=== PATIENT | male | born 1950 | race Caucasian/White ===

== ENCOUNTER → 2016-05-18 | Outpatient (CLI) | payer MEDICARE, OTHER ==
[~2016-05-18] VITALS: Ht 180.3 cm; Wt 117.9 kg
[~2016-05-18] MED LIST: /ATOR40TA; /WARF5TA; ACET65TA; ASPI1TAB PO; ASPI325T; ASPI81TA83; ATEN50TA2; ATEN50TA2 PO; ATOR1TAB18 PO; BABY81CH; COUM1TAB17 PO; GLIM2TA PO; ISOS30BRAN; JANU100T PO; JANUVIA; LIDOCAINE 2% INJ 100 MG/5 ML SDV (FOR ANES.) As Ordered ONE; LIPI20TA; LISI-538 PO; LISI20TA5; METF750T; METF750T PO; NS 1,000 ML IV SCH; PLAV75TA2; PROPOFOL 200 MG/20 ML VIAL As Ordered ONE; RANI300C PO; SIMV40TA2; SYSTSOL5; TRIC145T19; TUMS500C; VITA-112 PO; ZANT300T
--- NOTE | 2016-05-18 08:48 | ROOR ---
Patient Name: Uche Lopez Procedure Date: 05/18/2016 8:12 AM Date of : 1950 Age: 66 Room: [facility] Gender: Male Note Status: Finalized Procedure: Colonoscopy to Cecum Indications: High risk colon cancer surveillance: Personal history of colonic polyps, Last colonoscopy: 2013 Providers: Americo Bartlett MD Referring MD: CHAD JUNG JR, MD Requesting Provider: Medicines: Monitored Anesthesia Care Complications: No immediate complications. Procedure: Pre-Anesthesia Assessment: - The heart rate, respiratory rate, oxygen saturations, blood pressure, adequacy of pulmonary ventilation, and response to care were monitored throughout the procedure. The Colonoscope was introduced through the anus and advanced to the cecum, identified by appendiceal orifice and ileocecal valve. The colonoscopy was performed without difficulty. The patient tolerated the procedure well. The quality of the bowel preparation was good. Findings: The perianal and digital rectal examinations were normal. Non-bleeding internal hemorrhoids were found during retroflexion. The hemorrhoids were small and Grade I (internal hemorrhoids that do not prolapse). Multiple small and large-mouthed diverticula were found in the recto-sigmoid colon, sigmoid colon and descending colon. The exam was otherwise without abnormality on direct and retroflexion views. Impression: - Non-bleeding internal hemorrhoids. - Diverticulosis in the recto-sigmoid colon, in the sigmoid colon and in the descending colon. - The examination was otherwise normal on direct and retroflexion views. - No specimens collected. - The exam was otherwise normal to the cecum. Recommendation: - Patient has a contact number available for emergencies. The signs and symptoms of potential delayed complications were discussed with the patient. Return to normal activities tomorrow. Written discharge instructions were provided to the patient. - Discharge patient to home. - Continue present medications. - Repeat colonoscopy in 5 years for surveillance. - Return to referring physician. - Resume Coumadin (warfarin) at prior dose today. - The findings and recommendations were discussed with the patient's family. Americo Bartlett MD Americo Bartlett MD 05/18/2016 8:47:31 AM This report has been signed electronically. Number of Addenda: 0 Note Initiated On: 05/18/2016 8:12 AM Estimated Blood Loss: Estimated blood loss: none.
[2016-05-18 09:10] VITALS: BP 114/76
== END ==
LOC: M OPP 07:41
PROVIDERS: ATTEND Internal Medicine Gastroenterology
DX: Z12.11 Encounter for screening for malignant neoplasm of colon (principal); Z86.010 Personal history of colon polyps; K64.0 First degree hemorrhoids; K57.30 Diverticulosis of large intestine without perforation or abscess without bleeding; E11.9 Type 2 diabetes mellitus without complications; E66.9 Obesity, unspecified; I25.10 Atherosclerotic heart disease of native coronary artery without angina pectoris; M19.90 Unspecified osteoarthritis, unspecified site; Z95.1 Presence of aortocoronary bypass graft; Z95.5 Presence of coronary angioplasty implant and graft; Z96.659 Presence of unspecified artificial knee joint; I26.99 Other pulmonary embolism without acute cor pulmonale; Z79.01 Long term (current) use of anticoagulants; Z79.82 Long term (current) use of aspirin; Z79.899 Other long term (current) drug therapy
CPT/HCPCS: 99156; 99157; G0105

== ENCOUNTER → 2016-09-14 | Outpatient (REF) | payer MEDICARE, OTHER ==
[~2016-09-14] MED LIST changes: -LIDOCAINE 2% INJ 100 MG/5 ML SDV (FOR ANES.) As Ordered ONE; -NS 1,000 ML IV SCH; -PROPOFOL 200 MG/20 ML VIAL As Ordered ONE
[2016-09-14 17:51] LABS: INR 1.96
== END ==
LOC: M LAB REF 16:08
PROVIDERS: ATTEND Nurse Practitioner Family
DX: Z51.81 Encounter for therapeutic drug level monitoring (principal); Z79.01 Long term (current) use of anticoagulants

== ENCOUNTER → 2020-06-22 | Outpatient (REF) | payer MEDICARE, OTHER ==
[~2020-06-22] MED LIST changes: -/ATOR40TA; -/WARF5TA; -ASPI1TAB PO; +ASPI81TA26 PO; -ATOR1TAB18 PO; +ATOR80TA59 PO; +COUM1TAB17; -GLIM2TA PO; +GLIM2TAB29 PO; +LIPI1TAB2; -LISI-538 PO; +LISI20TA33 PO; -METF750T PO; +METF750T36 PO
== END ==
LOC: M LAB REF 12:43
PROVIDERS: ATTEND Internal Medicine
DX: R74.8 Abnormal levels of other serum enzymes (principal)

== ENCOUNTER → 2021-01-18 | Outpatient (REF) | payer MEDICARE, OTHER | LOC: M LAB REF 16:22 | PROVIDERS: ATTEND Internal Medicine | DX: Z51.81 Encounter for therapeutic drug level monitoring (principal) ==

== ENCOUNTER → 2021-01-21 | Outpatient (CLI) | payer MEDICARE, OTHER ==
--- NOTE | 2021-01-21 09:52 | REP ---
INDICATION: FATTY LIVER, CKD COMPARISON: Correlation with CT dated 01/06/2010 TECHNIQUE: Real time B-mode alejandra scale ultrasound examination using curved array transducer. FINDINGS: Liver is hyperechoic suggesting fatty infiltration without focal hepatic lesion identified. Liver measures approximately 17.5 cm in craniocaudal length. Spleen is enlarged measuring 15.0 x 14.7 x 4.7 cm (SI: 1036). No focal splenic lesions are identified. Pancreas is incompletely evaluated due to interposed bowel gas but visualized portions appear normal. Gallbladder is normal without gallstones, wall thickening, or pericholecystic fluid. No biliary ductal dilatation is appreciated and the common bile duct measures 6.9 mm in diameter. The bilateral kidneys are normal in reniform shape with increased central sinus fat suggesting age-related renal disease. No hydronephrosis, nephrolithiasis or cystic lesion identified. Right kidney measures 10.4 x 5.3 x 6.0 cm. Left kidney measures 13.2 x 5.5 x 5.1 cm. Abdominal aorta is incompletely evaluated due to interposed bowel gas. Images of the bladder suggest trabeculated wall pattern suggesting possible mild chronic outlet obstruction. No ascites. IMPRESSION: 1. Mild hepatomegaly and fatty infiltration to the liver. 2. Splenomegaly without focal abnormality. 3. Subtle wall thickening and trabeculation to the bladder raising the possibility of mild chronic outlet obstruction. <Electronically signed by Albert Knight > 01/21/21 0931
== END ==
LOC: M RAD 08:44
PROVIDERS: ATTEND Internal Medicine
DX: K76.0 Fatty (change of) liver, not elsewhere classified (principal); N18.30 Chronic kidney disease, stage 3 unspecified

== ENCOUNTER → 2021-06-15 | Outpatient (REF) | payer MEDICARE, OTHER ==
[2021-06-15 13:44] LABS: PERCENT SATURATION 25.4 % (19.7-50.0)
== END ==
LOC: M LAB REF 12:30
PROVIDERS: ATTEND Internal Medicine
DX: E11.9 Type 2 diabetes mellitus without complications (principal); M16.11 Unilateral primary osteoarthritis, right hip; M25.511 Pain in right shoulder

== ENCOUNTER → 2021-09-20 | Outpatient (CLI) | payer MEDICARE, OTHER ==
[2021-09-20 13:40] LABS: BASO # 0.1 10^3/uL (0.0-0.2); BASO % 0.8 % (0.0-1.0); EOS # 0.2 10^3/uL (0.0-0.5); EOS % 2.1 % (0.0-3.0); HEMATOCRIT 40.4 % (42.0-52.0); HEMOGLOBIN 12.8 g/dl (13.5-17.5); LYMPH # 2.8 10^3/uL (1.5-5.0); LYMPH % 33.9 % (24.0-44.0); MEAN CORPUSCULAR HGB CONC 31.7 g/dl (32.0-36.5); MEAN CORPUSCULAR VOLUME 94.6 fl (80.0-96.0); MONO # 0.5 10^3/uL (0.0-0.8); MONO % 6.5 % (2.0-8.0); NEUTROPHILS # 4.6 10^3/uL (1.5-8.5); NEUTROPHILS % 55.7 % (36.0-66.0); PLATELET COUNT, AUTOMATED 226 10^3/uL (150-450); RED BLOOD COUNT 4.27 10^6/uL (4.30-6.10); WHITE BLOOD COUNT 8.3 10^3/uL (4.0-10.0)
[2021-09-20 14:35] LABS: ALBUMIN 3.7 GM/DL (3.2-5.2); PERCENT SATURATION 25.9 % (19.7-50.0)
== END ==
LOC: M PLALAB 10:34
PROVIDERS: ATTEND Orthopaedic Surgery
DX: M25.552 Pain in left hip (principal)

== ENCOUNTER 2022-07-20 09:51 | Day surgery (SDC) | payer MEDICARE, OTHER ==
[~2022-07-20] VITALS: Ht 180.3 cm; Wt 96.6 kg
[~2022-07-20 09:51] MED LIST changes: +ELIQ2.5T PO; +INVO100T PO; +LIDOCAINE 2% 100MG/5ML SDV (FOR ANES.) As Ordered ONE; +NS 1,000 ML IV ONE; +TRUL0.5I SC; +propofoL 200 MG/20 ML VIAL As Ordered ONE
[2022-07-20 13:03] VITALS: BP 116/71
== END 2022-07-20 18:03 | disposition home or self-care (01) ==
LOC: M OPP 09:51 → MERGE 13:30 → M OPP 18:03
PROVIDERS: ATTEND Internal Medicine Gastroenterology
DX: Z12.11 Encounter for screening for malignant neoplasm of colon (principal); Z86.010 Personal history of colon polyps; D12.6 Benign neoplasm of colon, unspecified; K57.30 Diverticulosis of large intestine without perforation or abscess without bleeding; Z79.01 Long term (current) use of anticoagulants; Z79.82 Long term (current) use of aspirin; Z79.84 Long term (current) use of oral hypoglycemic drugs; Z79.899 Other long term (current) drug therapy; Z86.711 Personal history of pulmonary embolism

== ENCOUNTER → 2022-08-09 | Outpatient (REF) | payer MEDICARE, OTHER ==
[~2022-08-09] MED LIST changes: -LIDOCAINE 2% 100MG/5ML SDV (FOR ANES.) As Ordered ONE; -NS 1,000 ML IV ONE; -propofoL 200 MG/20 ML VIAL As Ordered ONE
== END ==
LOC: M LAB REF 12:19
PROVIDERS: ATTEND Internal Medicine
DX: R74.8 Abnormal levels of other serum enzymes (principal)

== ENCOUNTER → 2023-10-03 | Outpatient (CLI) | payer MEDICARE, OTHER | LOC: M RAD 09:57 | PROVIDERS: ATTEND Internal Medicine | DX: R74.8 Abnormal levels of other serum enzymes (principal); K76.0 Fatty (change of) liver, not elsewhere classified ==

== ENCOUNTER → 2024-04-17 | Outpatient (CLI) | payer MEDICARE, OTHER | LOC: M RAD 09:16 | PROVIDERS: ATTEND Internal Medicine | DX: K76.0 Fatty (change of) liver, not elsewhere classified (principal) ==